=== PATIENT | female | born 1940 | race Caucasian/White ===

== ENCOUNTER → 2021-08-28 | Outpatient (CLI) | payer MEDICARE, BC | LOC: M.MRI 11:05 | PROVIDERS: ATTEND Nurse Practitioner Family | DX: S63.592A Other specified sprain of left wrist, initial encounter (principal); M19.032 Primary osteoarthritis, left wrist; M25.732 Osteophyte, left wrist; M25.432 Effusion, left wrist; M25.832 Other specified joint disorders, left wrist; X58.XXXA Exposure to other specified factors, initial encounter; Y93.89 Activity, other specified; Y92.89 Other specified places as the place of occurrence of the external cause; Y99.8 Other external cause status ==